=== PATIENT | male | born 1960 | race Hispanic/Latino ===

== ENCOUNTER 2021-12-01 10:59 | Emergency (ER) | payer SELFPAY ==
[2021-12-01] MEDS ORDERED: LIDOCAINE 1% MPF 5 ML VIAL ONE (12:11)
--- NOTE | 2021-12-01 12:32 | EDPHYS ---
Physician Documentation [facility] Name: Jerrod Kaur Age: 61 yrs Sex: Male : 1960 Arrival Date: 12/01/2021 Time: 11:06 Bed 24 Private MD: ED Physician Mikael Mckeon HPI: 12/01 12:28 This 61 yrs old Male presents to ER via Ambulatory with complaints of jl9 Laceration To Hand, Wrist Injury. 12:28 The patient has a laceration Cut hand on metal while at [employer]. 3cm lacertion to jl9 left wrist. . The laceration(s) is(are) located on the left hand. Onset: The symptoms/episode began/occurred just prior to arrival. Historical: - Allergies: 11:17 No Known Allergies; ap3 - Home Meds: 11:17 None [Active]; ap3 - PMHx: 11:17 None; ap3 - Immunization history:: Client reports having NOT received the Covid vaccine. Last tetanus immunization: unknown. - Social history:: Smoking status: Patient denies any tobacco usage or history of. Patient uses alcohol, occasionally. ROS: 12:28 Constitutional: Negative for fever, chills, and weight loss, Eyes: Negative for injury, jl9 pain, redness, and discharge, ENT: Negative for injury, pain, and discharge, Neck: Negative for injury, pain, and swelling, Cardiovascular: Negative for chest pain, palpitations, and edema, Respiratory: Negative for shortness of breath, cough, wheezing, and pleuritic chest pain, Abdomen/GI: Negative for abdominal pain, nausea, vomiting, diarrhea, and constipation, Back: Negative for injury and pain. 12:28 Neuro: Negative for headache, weakness, numbness, tingling, and seizure, Psych: Negative for depression, anxiety, suicide ideation, homicidal ideation, and hallucinations, Allergy/Immunology: Negative for hives, rash, and allergies, Endocrine: Negative for neck swelling, polydipsia, polyuria, polyphagia, and marked weight changes, Hematologic/Lymphatic: Negative for swollen nodes, abnormal bleeding, and unusual bruising. 12:28 MS/extremity: Positive for laceration. 12:28 Skin: Positive for 3cm laceration to left wrist. . Exam: 12:29 Constitutional: This is a well developed, well nourished patient who is awake, alert, jl9 and in no acute distress. Head/Face: Normocephalic, atraumatic. Eyes: Pupils equal round and reactive to light, extra-ocular motions intact. Lids and lashes normal. Conjunctiva and sclera are non-icteric and not injected. Cornea within normal limits. Periorbital areas with no swelling, redness, or edema. ENT: Mucous membranes moist. Neck: Trachea midline, no thyromegaly or masses palpated, and no cervical lymphadenopathy. Supple, full range of motion without nuchal rigidity, or vertebral point tenderness. No Meningismus. Chest/axilla: Normal chest wall appearance and motion. Nontender with no deformity. No lesions are appreciated. Cardiovascular: Regular rate and rhythm with a normal S1 and S2. No gallops, murmurs, or rubs. Normal PMI, no JVD. No pulse deficits. Respiratory: Lungs have equal breath sounds bilaterally, clear to auscultation and percussion. No rales, rhonchi or wheezes noted. No increased work of breathing, no retractions or nasal flaring. Abdomen/GI: Soft, non-tender, with normal bowel sounds. No distension or tympany. No guarding or rebound. No evidence of tenderness throughout. Back: No spinal tenderness. No costovertebral tenderness. Full range of motion. 12:29 Skin: injury, laceration(s), that can be described as clean, no foreign body, linear. 12:30 MS/ Extremity: Pulses equal, no cyanosis. Neurovascular intact. Full, normal range jl9 of motion. Neuro: Awake and alert, GCS 15, oriented to person, place, time, and situation. Cranial nerves II-XII grossly intact. Motor strength 5/5 in all extremities. Sensory grossly intact. Cerebellar exam normal. Normal gait. Psych: Awake, alert, with orientation to person, place and time. Behavior, mood, and affect are within normal limits. Vital Signs: 11:13 BP 157 / 100; Pulse 62; Weight 63 kg; Height 5 ft. 4 in. (162.56 cm); ap3 11:13 Body Mass Index 23.84 (63.00 kg, 162.56 cm) ap3 Laceration: 12:30 Wound Repair of 3cm ( 1.2in ) subcutaneous laceration to left hand. Distal jl9 neuro/vascular/tendon intact. Anesthesia: Local anesthetic administered with 4 mls of 1% lidocaine. Wound prep: Simple cleansing, Wound irrigation. Skin closed with 5 4-0 Prolene using simple sutures and sterile technique. Dressed with Bacitracin. Patient tolerated well. MDM: 11:52 Patient medically screened. jl9 12:30 Data reviewed: vital signs, nurses notes. jl9 12/01 11:53 Order name: Suture Tray at Bedside; Complete Time: 11:58 jl9 Administered Medications: 12:18 Drug: Lidocaine (1 %) 5 ml Volume: 5 ml; Route: Infiltration; hb 12:44 Follow up: Response: No adverse reaction hb Disposition: 15:42 Co-signature as Attending Physician, Mikael Mckeon MD I agree with the assessment and kdr plan of care. Disposition Summary: 12/01/21 12:31 Discharge Ordered Location: Home jl9 Condition: Stable jl9 Diagnosis - Hand Laceration/ Open wound of hand jl9 Followup: jl9 - With: Private Physician - When: 5 - 6 days - Reason: Recheck today's complaints, Continuance of care, Re-evaluation by your physician Discharge Instructions: - Discharge Summary Sheet jl9 - Laceration Care, Adult, [id number] jl9 Forms: - Medication Reconciliation Form jl9 - Thank You Letter jl9 - Antibiotic Education jl9 - Prescription Opioid Use jl9 Signatures: Mikael Mckeon MD MD [facility] Katie Ivory, RN RN Opal Varela RN RN Evens Lino jl9
--- NOTE | 2021-12-01 12:32 | ER ---
Nurse's Notes [facility] Name: Jerrod Kaur Age: 61 yrs Sex: Male : 1960 Arrival Date: 12/01/2021 Time: 11:06 Bed 24 Private MD: Diagnosis: Hand Laceration/ Open wound of hand Presentation: 12/01 11:13 Chief complaint: Patient states: patient states he was cut by a new [employer] blade ap3 when loading the [employer] into his truck. patient states the incident occurred at [employer]. patient presents to the ED with a dressing to his right wrist where he reports the laceration to be located. Coronavirus screen: At this time, the client does not indicate any symptoms associated with coronavirus-19. Ebola Screen: No symptoms or risks identified at this time. Complicating Factors: laceration to right wrist. Initial Sepsis Screen: Does the patient meet any 2 criteria? No. Patient's initial sepsis screen is negative. Does the patient have a suspected source of infection? No. Patient's initial sepsis screen is negative. Risk Assessment: Do you want to hurt yourself or someone else? Patient reports no desire to harm self or others. Onset of symptoms was December 01, 2021 at 10:45. 11:13 Method Of Arrival: Ambulatory ap3 11:13 Acuity: [place] 3 ap3 Triage Assessment: 11:18 General: Appears in no apparent distress. Behavior is calm, cooperative. Pain: ap3 Complains of pain in lateral aspect of right hand Pain began suddenly. Neuro: Level of Consciousness is awake, alert, obeys commands, Oriented to person, place, time, situation, Speech is normal. Cardiovascular: Patient's skin is warm and dry. Respiratory: Airway is patent Respiratory effort is even, unlabored, Respiratory pattern is regular, symmetrical. Injury Description: Laceration sustained to lateral aspect of right hand is clean, was sustained 30-60 minutes ago. is bleeding a small amount. Historical: - Allergies: 11:17 No Known Allergies; ap3 - Home Meds: 11:17 None [Active]; ap3 - PMHx: 11:17 None; ap3 - Immunization history:: Client reports having NOT received the Covid vaccine. Last tetanus immunization: unknown. - Social history:: Smoking status: Patient denies any tobacco usage or history of. Patient uses alcohol, occasionally. Screenin:18 Abuse screen: Denies threats or abuse. Abuse screen: Denies threats or abuse. ap3 Nutritional screening: No deficits noted. Tuberculosis screening: No symptoms or risk factors identified. 12:24 Fall Risk None identified. hb Assessment: 11:19 Musculoskeletal: Range of motion: intact in MCP of right thumb. ap3 12:24 General: Appears in no apparent distress. Behavior is calm, cooperative. Neuro: Level hb of Consciousness is awake, alert, obeys commands, Oriented to person, place, time, situation. Cardiovascular: Patient's skin is warm and dry. Respiratory: Respiratory effort is even, unlabored, Respiratory pattern is regular, symmetrical. Vital Signs: 11:13 BP 157 / 100; Pulse 62; Weight 63 kg; Height 5 ft. 4 in. (162.56 cm); ap3 11:13 Body Mass Index 23.84 (63.00 kg, 162.56 cm) ap3 ED Course: 11:06 Patient arrived in ED. am2 11:16 Evens Lauren is PHCP. jl9 11:16 Mikael Mckeon MD is Attending Physician. jl9 11:17 Triage completed. ap3 11:19 Arm band placed on left wrist. ap3 11:22 Dressings: Kerlix X 1; right hand 4X4s X 3; right hand. ap3 11:59 Katie Ivory RN is Primary Nurse. hb 12:24 Patient has correct armband on for positive identification. hb 12:44 No provider procedures requiring assistance completed. Patient did not have IV access hb during this emergency room visit. Administered Medications: 12:18 Drug: Lidocaine (1 %) 5 ml Volume: 5 ml; Route: Infiltration; hb 12:44 Follow up: Response: No adverse reaction hb Medication: 11:19 VIS not applicable for this client. ap3 Outcome: 12:31 Discharge ordered by . jl9 12:44 Discharged to home ambulatory. hb 12:44 Condition: stable 12:44 Discharge instructions given to patient, Instructed on discharge instructions, follow up and referral plans. wound care, Demonstrated understanding of instructions, follow-up care, wound care. 12:44 Patient left the ED. hb Signatures: Katie Ivory RN RN Opal Berry am2 Opal Miranda RN RN ap3 Evens Lauren jl9
[2021-12-01 12:52] VITALS: BP 157/100
== END 2021-12-01 12:44 | disposition home or self-care (01) ==
LOC: ER 10:59
PROC: 0JQK0ZZ Repair Left Hand Subcutaneous Tissue and Fascia, Open Approach (ICD-10-PCS; principal; 2021-12-01)
DX: S61.412A Laceration without foreign body of left hand, initial encounter (principal)
CPT/HCPCS: 99282